=== PATIENT | male | born 2000 | race Two or more races ===

== ENCOUNTER 2021-03-14 16:33 | Emergency (ER) | payer OTHER, SELFPAY ==
[2021-03-14] MEDS ORDERED: HYDROmorphone 0.5 MG/0.5 ML Syringe ONE (16:40)
--- NOTE | 2021-03-14 16:55 | EDM.PDOC ---
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 He somehow got his L forearm into the area of where the tongs grab the pipe without resultant injury. Pt is now able to really give more information on why or how it happened. He does have severe pain. He has a bleeding open wound with no bone protruding dosal L mid forearm. 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 EMS has given a total of 4 mg morphine IV and zofran 4 mg IV GAS DISPENSER. He believes his last tetanus was about 3 to 4 yrs ago. This was called a trauma alert GAS DISPENSER based on mechanism of injury and reported open fracture/crush injury. He is not diabetic, no known health problems. Left Arm Pain Score (Numeric/FACES): 10 - Related Data Allergies Allergy/AdvReac Type Severity Reaction Status Date / Time No Known Allergies Allergy Verified 03/15/21 09:44 Home Meds: Home Meds Hydrocodone/Acetaminophen [Hydrocodone-Acetamin 5-325 mg] 1 - 2 each PO Q6H PRN #40 03/15/21 [Rx] Review of Systems - Review of Systems Review Of Systems: See Below Eyes: Reports: No Symptoms Mouth/Throat: Reports: No Symptoms Respiratory: Denies: Shortness of Breath Cardiovascular: Denies: Chest Pain GI/Abdominal: Denies: Abdominal Pain Musculoskeletal: Reports: Arm Pain Skin: Reports: Other (Skin lac mid forearm) Neurological: Reports: Numbness (L hand and fingers ), Tingling ED EXAM, GENERAL - Physical Exam Exam: See Below Exam Limited By: Other (pt had a lot of pain L forearm at time of initial exam) Ear Exam: Bilateral Ear: Auricle Normal Head: Atraumatic Neck: Supple Respiratory/Chest: No Respiratory Distress, Lungs Clear, Normal Breath Sounds. No: Rhonchi, Wheezing Cardiovascular: Regular Rate, Rhythm GI/Abdominal: Soft, Non-Tender Extremities: Other (moderate tenderness L mid forearm, mild swelling, mild deformity with small open laceration mid dorsal forearm, slight oozing of blood present. Elbow, distal wrist and hand nontender) Neurological: Other (pt is finding it hard to flex and extend fingers, he does have good sensation to touch all distal fingers and thumb of L hand) Course - Vital Signs Last Recorded V/S: Last Vital Signs Temp 98.5 F 03/14/21 17:50 Pulse 61 03/14/21 19:15 Resp 20 03/14/21 19:15 BP 142/89 H 03/14/21 19:15 Pulse Ox 98 03/14/21 19:15 - Orders/Labs/Meds Orders: Active Orders 24 hr Category Date Time Status DME for Discharge [COMM] Stat Oth 03/14/21 19:34 Ordered Labs: Laboratory Tests 03/14/21 03/14/21 Range/Units 17:45 18:05 SARS-CoV-2 RNA (RUPAL) Negative (NEGATIVE) MRSA (PCR) Negative Meds: Medications Discontinued Medications Generic Name Dose Route Start Last Admin Trade Name Freq PRN Reason Stop Dose Admin Diphtheria/Tetanus/Acell Pertussis 0.5 ml 03/14/21 17:22 03/14/21 17:32 Diphtheria,Pertussis(Acell),Tetanus Vaccine 0.5 Ml Syringe IM 03/14/21 17:23 0.5 ml .ONCE ONE Administration Hydromorphone HCl 0.5 mg 03/14/21 17:35 03/14/21 16:41 Hydromorphone 0.5 Mg/0.5 Ml Syringe IVPUSH 03/14/21 17:36 0.5 mg ONETIME ONE Administration Hydromorphone HCl 0.5 mg 03/14/21 18:02 03/14/21 18:10 Hydromorphone 0.5 Mg/0.5 Ml Syringe IVPUSH 03/14/21 18:03 0.5 mg ONETIME ONE Administration Hydromorphone HCl Confirm 03/14/21 16:40 Hydromorphone 0.5 Mg/0.5 Ml Syringe Administered 03/14/21 16:41 Dose 0.5 mg .ROUTE .STK-MED ONE Cefazolin Sodium/Dextrose 1 gm 50 mls @ 100 mls/hr 03/14/21 17:01 03/14/21 17:10 / Premix IV 03/14/21 17:30 100 mls/hr ONETIME ONE Administration Cefazolin Sodium/Dextrose 1 gm 50 mls @ 100 mls/hr 03/14/21 17:17 03/14/21 17:27 / Premix IV 03/14/21 17:46 100 mls/hr ONETIME ONE Administration - Re-Assessments/Exams Free Text/Narrative Re-Assessment/Exam: 03/14/21 17:34 X rays of forearm show transverse fx of L mid radius with mild volar angulation visible on lateral view. Have discussed with Dr Coyne who has reviewed Xrays, with the volar angulation of radius does not see how the open skin wound dorsal forearm could be from bone, especially with no fx of ulna. He will see patient at his office 8 AM tomorrow morning. Hope to do surgery tomorrow. Tetanus has been ordered. Have given 1 gram IV ancef, will give a 2nd gram IV. Much more comfortable now after 0.5 mg dilaudid after arrival. On recheck he still has good distal pulses and cap refill LUE. The numbness of his L hand that he had on arrival is gone. 03/14/21 19:11. At time of splinting pt doing much better for pain, however swelling of mid forearm has increased. As noted the numbness of his L distal forearm, wrist and hand is gone which he did have on arrival to ED. He is able o flex fingers, has pain L forearm with extension. Have further discussed with Dr Coyne the increased swelling but improve numbness and tingling. Have further emphasized with pt the need for compulsive elevation, ice packs this evening and continued elevation during he night to try prevent further swelling. Discharge instr. as documented. Departure - Departure Time of Disposition: 19:13 Disposition: Home, Self-Care 01 Condition: Fair Clinical Impression: Contusion of forearm, left Qualifiers: Encounter type: initial encounter Qualified Code(s): S50.12XA - Contusion of left forearm, initial encounter Fracture of forearm Qualifiers: Encounter type: initial encounter Fracture type: open Laterality: left - Discharge Information Instructions: Forearm Fracture With Rehab-SportsMed, Contusion, [id number] Referrals: PCP,None [Primary Care Provider] - Forms: ED Department Discharge Additional Instructions: Fiberglass splint. Wrist sling. Keep splint dry. Elevate forearm, hand, and wrist as much as possible. Ice packs every 1 hr for about 20 to 30 minutes this evening and than again tomorrow AM prior to Ortho appointment. Hydrocodone if needed for severe pain, take with food. Nothing to eat or drink after midnight. See Dr Coyne at his Orthopedic office 8 Am tomorrow morning. - My Orders Last 24 Hours: My Active Orders 03/14/21 19:34 DME for Discharge [COMM] Stat - Assessment/Plan Last 24 Hours: My Active Orders 03/14/21 19:34 DME for Discharge [COMM] Stat
[2021-03-14] MEDS ORDERED: ceFAZolin 1 GM in Premix Bag 1 BAG IV ONE ×2 (17:01→17:17)
[2021-03-14] MEDS ORDERED: Diphtheria,Pertussis(Acell),Tetanus Vaccine 0.5 ML Syringe IM ONE (17:22)
[2021-03-14] MEDS ORDERED: HYDROmorphone 0.5 MG/0.5 ML Syringe IVPUSH ONE ×2 (17:35→18:02)
--- NOTE | 2021-03-14 20:36 | CR ---
Left forearm: 2 views of the left forearm were obtained. Comparison: No prior study. Fracture is identified within the mid one third diaphysis of the radius. Slight apex anterior angulation is noted. Small chip fracture is noted off the cortex of the mid ulna. Diffuse soft tissue swelling is noted with soft tissue air. Impression: 1. Radial fracture as noted above. 2. Minimal chip fracture off the mid ulna. 3. Diffuse soft tissue injury. Diagnostic code #3
== END 2021-03-14 19:50 | disposition home or self-care (01) ==
LOC: JD.ED 16:33
DX: S52.322A Displaced transverse fracture of shaft of left radius, initial encounter for closed fracture (principal); S52.292A Other fracture of shaft of left ulna, initial encounter for closed fracture; Z20.822 Contact with and (suspected) exposure to COVID-19; Z23 Encounter for immunization; W23.0XXA Caught, crushed, jammed, or pinched between moving objects, initial encounter; Y99.0 Civilian activity done for income or pay
CPT/HCPCS: 29105; 73090; 87635; 87641; 90471; 90715; 96365; 96375; 96376; 99284; J0690; J1170; U0002

== ENCOUNTER → 2021-03-15 | Day surgery (SDC) | payer OTHER ==
[~2021-03-15] MED LIST: Acetaminophen/HYDROcodone 325-5 MG Tab PO PRN; Bupivacaine 0.25% 10 ML SDV ONE; Dexamethasone 4 MG/ML 5 ML MDV ONE; Glycopyrrolate 0.2 MG/ML SDV ONE; HYDROmorphone 0.5 MG/0.5 ML Syringe IVPUSH PRN; HYDROmorphone 0.5 MG/0.5 ML Syringe ONE; Ketamine 500 mg/10 ML MDV ONE; Ketorolac 30 MG/ML SDV ONE; Lactated Ringers 1,000 ML IV SCH; Lidocaine 1% 4 ML ONE; Lidocaine 1%/Sod Bicarbonate in NS 8.4% 1 ML Syringe IDERM PRN; Midazolam 1 MG/ML 2 ML SDV ONE; Ondansetron 4 MG/2 ML SDV IVPUSH PRN; Ondansetron 4 MG/2 ML SDV ONE; Propofol 200 MG/20 ML SDV ONE; Sodium Chloride 0.9% 10 ML Syringe FLUSH PRN; ceFAZolin 1 GM Vial ONE; fentaNYL 100 MCG/2 ML SDV IVPUSH PRN; fentaNYL 250 MCG/5 ML SDV ONE
--- NOTE | 2021-03-15 09:21 | PCM.PREANE ---
Preanesthetic Assessment - Procedure Proposed Procedure: ORIF of left radius with irrigation and debridement. - Anesthesia/Transfusion/Family Hx Anesthesia History: No Prior Anesthesia Family History of Anesthesia Reaction: No Transfusion History: No Prior Transfusion(s) Intubation History: Unknown - Review of Systems General: No Symptoms Pulmonary: No Symptoms (Last smoked marijuana 4 years ago/childhood asthma that has resolved.) Cardiovascular: No Symptoms Gastrointestinal: No Symptoms Neurological: No Symptoms, Headache, Seizure (last seizure 1.5-2 years ago.) Other: Reports: Easy Bruising, Anxiety - Physical Assessment NPO Status Date: 03/14/21 NPO Status Time: 22:00 Vital Signs: HR: 52 Sat: 100% Resp: 16 B/P: 145/89 Temp: 99.4 Height: 1.78 m Weight: 71 kg ASA Class: 1 Mental Status: Alert & Oriented x3 Airway Class: Mallampati = 2 Dentition: Reports: Normal Dentition, Caries Thyro-Mental Finger Breadths: 3 Mouth Opening Finger Breadths: 3 ROM/Head Extension: Full Lungs: Clear to Auscultation, Normal Respiratory Effort Cardiovascular: Regular Rate, Regular Rhythm, No Murmurs - Lab Values: All labs reviewed and noted and within acceptable ranges to proceed with scheduled procedure. - Allergies Allergies/Adverse Reactions: Allergies Allergy/AdvReac Type Severity Reaction Status Date / Time No Known Allergies Allergy Verified 03/14/21 17:15 - Anesthesia Plan Pre-Op Medication Ordered: None - Acknowledgements Anesthesia Type Planned: General Anesthesia Pt an Appropriate Candidate for the Planned Anesthesia: Yes Alternatives and Risks of Anesthesia Discussed w Pt/Guardian: Yes Pt/Guardian Understands and Agrees with Anesthesia Plan: Yes PreAnesthesia Questionnaire - HOME MEDS Home Medications: Home Meds . [No Known Home Meds] 03/14/21 [History] - CURRENT (IN HOUSE) MEDS Current Meds: Current Medications Lactated Ringer's (Ringers, Lactated) 1,000 mls @ 125 mls/hr IV ASDIRECTED VISH Lidocaine/Sodium Bicarbonate (Lidocaine 1%/Sod Bicarbonate In Ns 8.4% 1 Ml Syringe) 0.25 ml IDERM ONETIME PRN PRN Reason: Prior to IV Start Sodium Chloride (Sodium Chloride 0.9% 10 Ml Syringe) 10 ml FLUSH ASDIRECTED PRN PRN Reason: Keep Vein Open
[2021-03-15] MEDS: HYDROmorphone 0.5 MG/0.5 ML Syringe IVPUSH PRN ×2 (09:38→09:56)
--- NOTE | 2021-03-15 13:37 | PCM.POSTAN ---
POST ANESTHESIA ASSESSMENT - MENTAL STATUS Mental Status: Somnolent - VITAL SIGNS Vital Signs: Last Vital Signs Temp 99.3 F 03/15/21 08:57 Pulse 52 L 03/15/21 08:57 Resp 16 03/15/21 08:57 BP 145/85 H 03/15/21 08:57 Pulse Ox 100 03/15/21 08:57 1329 152/94 51 16 973.7 100% - RESPIRATORY Respiratory Status: Respiratory Rate WNL, Airway Patent, O2 Saturation Stable, Supplemental Oxygen - CARDIOVASCULAR CV Status: Pulse Rate WNL, Blood Pressure Stable - GASTROINTESTINAL GI Status: No Symptoms - PAIN Pain Score: 0 (sleepy) - POST OP HYDRATION Hydration Status: Adequate & Stable
--- NOTE | 2021-03-15 13:47 | CR ---
Left forearm: 8 fluoroscopic spot views were obtained of the left arm. Study was centered to the fracture within the radius. Study obtained utilizing C-arm device. Comparison: Prior left forearm study of 03/14/21. Plate and screws have been placed across previous radial fracture. Alignment is anatomic. Minimal defect is noted within the adjacent ulna. Fluoroscopy time given is 10.9 seconds. Impression: 1. Satisfactory procedural study as noted above. Diagnostic code #2
--- NOTE | 2021-03-15 14:50 | PCM48HPAN ---
Post Anesthesia Note - EVALUATION WITHIN 48HRS OF ANESTHETIC Vital Signs in Normal Range: Yes Patient Participated in Evaluation: Yes Respiratory Function Stable: Yes Airway Patent: Yes Cardiovascular Function Stable: Yes Hydration Status Stable: Yes Pain Control Satisfactory: Yes Nausea and Vomiting Control Satisfactory: Yes Mental Status Recovered: Yes (states he just woke up. Pain is good now,.) Vital Signs: Last Vital Signs Temp 98.2 F 03/15/21 14:30 Pulse 44 L 03/15/21 14:30 Resp 9 L 03/15/21 14:30 BP 141/85 H 03/15/21 14:30 Pulse Ox 96 03/15/21 14:30
--- NOTE | 2021-03-22 11:33 | PCM.OPNOTE ---
- General Post-Op/Procedure Note Date of Surgery/Procedure: 03/15/21 Operative Procedure(s): open reduction internal fixation left radial shaft fracture with irrigation and debridement of forearm Pre Op Diagnosis: left radial shaft fracture with crush injury and laceration Post-Op Diagnosis: Same Anesthesia Technique: General LMA, Local Primary Surgeon: Saw Coyne Anesthesia Provider: Shelly Mario Client Development Director: Neida Ribeiro EBL in mLs: 20 Complications: None Condition: Good
--- NOTE | 2021-03-23 12:21 | OR ---
DATE OF OPERATION: 03/15/2021 SURGEON: Saw Coyne MD OPERATION PERFORMED: Open reduction and internal fixation of left radial shaft fracture with irrigation and debridement of forearm. PREOPERATIVE DIAGNOSIS: Left radial shaft fracture with crush injury and laceration. POSTOPERATIVE DIAGNOSIS: Left radial shaft fracture with crush injury and laceration. ANESTHESIA: General LMA with local. ANESTHESIA PROVIDER: Shelly Mario CRNA JAVA PROJECT MANAGER: Neida Ribeiro PA-C ESTIMATED BLOOD LOSS: 20 mL. COMPLICATIONS: None. CONDITION: Stable. DESCRIPTION OF PROCEDURE: The patient was identified in the preoperative holding area where the proper site was marked and identified by the surgeon. The patient was then taken back to the operative theater where, after adequate anesthesia, the patient's left upper extremity was sterilely prepped and draped in the usual sterile fashion. OR time-out was performed. The patient received 2 g of IV Ancef. At this time, the patient had a laceration on the dorsum of his forearm from the crush injury. I did extend the incision. We did debride the skin edges less than 3 sq cm, and then we ran 3 L of normal saline with cysto tubing through it. I did not feel that it communicated with the fracture site when probing. At this time, after this was completed, a sterile drape was placed underneath. Gloves were changed, and new instruments were used. A standard volar incision was made centered over the FCR. This was taken down, and the flexor pollicis longus tendon was divided. The brachioradialis as well as the neurovascular structures were retracted radially. The fracture site was identified. It was curetted and rongeured of fracture hematoma, and irrigation was irrigated through the fracture site. At this time, [id number] reduction clamps and lobster claw clamps were used for reduction of the radial shaft fracture. A 6-hole 3.5 mm compression plate was then placed under direct C-arm fluoroscopy. One screw was placed proximal to the fracture and then another in compression technique was placed distally. I then placed 2 more 3.5 cortical screws both proximally and distally to the fracture site. It was found to have anatomic reduction on both AP and lateral views and under direct visualization. At this time, adequate saline was irrigated through the wound. 2-0 Vicryl was used subcutaneously, and Prineo was used for skin closure. We did place two 3-0 nylon sutures over the laceration on the dorsum of the forearm as well. Of note, the patient did have a large hematoma that was evacuated, and his forearm was compressible after the surgery was done. The patient did have difficulty with flexion and extension of his IP joint before surgery. CARROLL /[id number]
== END | disposition home or self-care (01) ==
LOC: JD.SDS 08:39
PROVIDERS: ATTEND Orthopaedic Surgery
DX: S52.302A Unspecified fracture of shaft of left radius, initial encounter for closed fracture (principal); W31.89XA Contact with other specified machinery, initial encounter
CPT/HCPCS: 25515; 76000; C1713; C1776; J0690; J1100; J1170; J1885; J2250; J2405; J2704; J3010; J3490; J7120; 01830

== ENCOUNTER 2021-03-16 16:33 | Emergency (ER) | payer OTHER ==
--- NOTE | 2021-03-16 17:21 | EDM.PDOC ---
ED HPI GENERAL MEDICAL PROBLEM - General Chief Complaint: Upper Extremity Injury/Pain Stated Complaint: POST SURGICAL ISSUES WITH LT ARM Time Seen by Provider: 03/16/21 16:39 Source of Information: Reports: Patient History Limitations: Reports: No Limitations - History of Present Illness INITIAL COMMENTS - FREE TEXT/NARRATIVE: 20 yo M with LUE pain s/p surgery yesterday. He was here a few days ago after a crush injury to the arm and has a midshaft radial fracture. Yesterday he underwent operative intervention to wash out and fix the injury. He has been taking 2 tab hydrocodone every 6 hours and feels pain is not controlled. He's had fairly severe/constant pain. Pain is located on the volar aspect of the forearm near the incision. He has not had fever. No numbness. Minimal hand swelling. He is elevating and icing the arm when possible. No additional complaint. Right Arm Pain Score (Numeric/FACES): 10 - Related Data Allergies Allergy/AdvReac Type Severity Reaction Status Date / Time No Known Allergies Allergy Verified 03/16/21 16:42 Home Meds: Home Meds Hydrocodone/Acetaminophen [Hydrocodone-Acetamin 5-325 mg] 1 - 2 each PO Q6H PRN #40 03/15/21 [Rx] oxyCODONE 10 mg PO Q4HR PRN #24 tab 03/16/21 [Rx] Past Medical History Musculoskeletal History: Reports: Fracture - Past Surgical History Musculoskeletal Surgical History: Reports: Other (See Below) Other Musculoskeletal Surgeries/Procedures:: L Arm Surgery Social & Family History - Tobacco Use Tobacco Use Status *Q: Never Tobacco User - Caffeine Use Caffeine Use: Reports: Soda - Recreational Drug Use Recreational Drug Use: No Review of Systems - Review of Systems Review Of Systems: See Below Constitutional: Denies: Fever Respiratory: Reports: No Symptoms Cardiovascular: Reports: No Symptoms Musculoskeletal: Reports: Arm Pain Skin: Reports: No Symptoms Neurological: Denies: Numbness Psychiatric: Reports: No Symptoms ED EXAM, GENERAL - Physical Exam Exam: See Below Exam Limited By: No Limitations General Appearance: Alert, WD/WN, No Apparent Distress Eye Exam: Bilateral Eye: PERRL Ears: Normal External Exam Nose: Normal Inspection Throat/Mouth: Normal Inspection Head: Atraumatic Neck: Normal Inspection Respiratory/Chest: No Respiratory Distress GI/Abdominal: No Distention Extremities: Other (LUE: splint is intact, fingers are warm and well perfused, good cap refill, he does have pain with extension of fingers on the volar aspect of the arm, no numbness) Course - Vital Signs Last Recorded V/S: Last Vital Signs Temp 36.8 C 03/16/21 16:39 Pulse 85 03/16/21 16:39 Resp 16 03/16/21 16:39 BP 128/83 03/16/21 16:39 Pulse Ox 97 03/16/21 16:39 - Orders/Labs/Meds Meds: Medications Discontinued Medications Generic Name Dose Route Start Last Admin Trade Name Freq PRN Reason Stop Dose Admin Hydromorphone HCl 1 mg 03/16/21 17:49 03/16/21 17:53 Hydromorphone 1 Mg/Ml Syringe IM 03/16/21 17:50 1 mg ONETIME STA Administration - Re-Assessments/Exams Free Text/Narrative Re-Assessment/Exam: 03/16/21 17:[address] Coyne. He opened the fascia and left it open on the volar aspect of the arm where the patient has pain, which lowers concern for compartment syndrome. Patient's pain control has been poor with hydrocodone q6 hrs, we will switch to oxycodone, advised patient he may dose every 4 hours if needed for the next day or two. He will keep his scheduled follow-up with Dr. Coyne, discussed ED return precautions. He is taking his antibiotic as prescribed. 03/16/21 17:57 Will give a dose of IM dilaudid prior to DC if patient can arrange for a city bus driver, it has been nearly 6 hrs since last dose of hydrocodone. Departure - Departure Time of Disposition: 17:15 Disposition: Home, Self-Care 01 Clinical Impression: Post-operative pain - Discharge Information Prescriptions: oxyCODONE 10 mg PO Q4HR PRN #24 tab PRN Reason: Pain Instructions: Pain Relief Before and After Surgery, Acute Pain, Adult Referrals: Saw Coyne MD [Primary Care Provider] - Forms: ED Department Discharge Additional Instructions: 1. Continue to elevate and ice arm as much as possible to reduce swelling 2. You may take oxycodone instead of hydrocodone, and ok to dose every 4 hours if needed for next couple of days. After that, try to space out doses to every 6 hours if possible. 3. Return to the ED for a recheck if you get a fever, worsening pain, numbness in your fingers, or other concerning symptoms. Sepsis Event Note (ED) - Evaluation Sepsis Screening Result: No Definite Risk - Focused Exam Vital Signs: Vital Signs Temp Pulse Resp BP Pulse Ox 03/16/21 16:39 36.8 C 85 16 128/83 97
[2021-03-16] MEDS ORDERED: HYDROmorphone 1 MG/ML Syringe IM STA (17:49)
== END 2021-03-16 18:00 | disposition home or self-care (01) ==
LOC: JD.ED 16:33
DX: G89.18 Other acute postprocedural pain (principal); M79.602 Pain in left arm
CPT/HCPCS: 96372; 99283; J1170

== ENCOUNTER 2021-03-17 17:49 | Emergency (ER) | payer OTHER ==
--- NOTE | 2021-03-17 19:30 | EDM.PDOC ---
ED HPI GENERAL MEDICAL PROBLEM - General Chief Complaint: Upper Extremity Injury/Pain Stated Complaint: LT ARM PAIN/POST ORTHO SURGERY Time Seen by Provider: 03/17/21 18:06 Source of Information: Reports: Patient, Family, RN Notes Reviewed History Limitations: Reports: No Limitations - History of Present Illness INITIAL COMMENTS - FREE TEXT/NARRATIVE: patient is a 20 year old male presenting to ER with c/o numbness in the fingers of his left hand and worsening pain in his left arm. He had surgery for fracture of his left radius on March 15. He was seen in this ER yesterday for worsening of pain. Prescribed oxycodone. States he has been using this but does still have pain. His last dose of [place] was about 4 hours ago. He is also concerned with swelling above his dressing. He denies any fever or chills. He has had no nausea or vomiting. Left Arm Pain Score (Numeric/FACES): 10 - Related Data Allergies Allergy/AdvReac Type Severity Reaction Status Date / Time No Known Allergies Allergy Verified 03/17/21 18:08 Home Meds: Home Meds oxyCODONE 10 mg PO Q4HR PRN #24 tab 03/16/21 [Rx] Past Medical History Musculoskeletal History: Reports: Fracture - Past Surgical History Musculoskeletal Surgical History: Reports: Other (See Below) Other Musculoskeletal Surgeries/Procedures:: L Arm Surgery Social & Family History - Tobacco Use Tobacco Use Status *Q: Never Tobacco User - Caffeine Use Caffeine Use: Reports: Soda - Recreational Drug Use Recreational Drug Use: Yes Drug Use in Last 12 Months: No Recreational Drug Type: Reports: Marijuana/Hashish Review of Systems - Review of Systems Review Of Systems: Comprehensive ROS is negative, except as noted in HPI. ED EXAM, GENERAL - Physical Exam Exam: See Below Exam Limited By: No Limitations General Appearance: Alert, WD/WN, No Apparent Distress Extremities: Other (Antoine wrap splint extending from left hand to just below the elbow. Swelling, redness, and warmth proximal to the splint. Pain when fingers are palpated. Complains of numbness of the fingers, worse in the thumb and index finger. Capillary refill greater than 2 seconds in the first and second finge) Course - Vital Signs Last Recorded V/S: Last Vital Signs Temp 98.4 F 03/17/21 18:08 Pulse 88 03/17/21 18:08 Resp 14 03/17/21 18:08 BP 157/84 H 03/17/21 18:08 Pulse Ox 96 03/17/21 18:08 - Re-Assessments/Exams Free Text/Narrative Re-Assessment/Exam: A 20-year-old male presenting to the emergency department with complaints of worsening pain to his left arm as well as onset of numbness to the fingers of his left hand. He is 2 days postop ORIF of the left radius. On exam, patient does have redness, warmth, and swelling proximal to the splint as well as decreased capillary refill to the first and second fingers on left hand. Reports numbness in the fingers with the first and second fingers being worse. Case was discussed with orthopedist, Dr. Coyne. He states that his concern would be for compartment syndrome more so than infection. Dr. Barillas also assessed the patient. Dressing was removed using sterile technique. After the dressing was removed patient had immediate improvement of his pain as well as of the numbness of his first and second fingers. Wound to the dorsal aspect of the forearm is well approximated. There is no redness, warmth, or drainage to this area. Surgical incision is also well approximated with no signs of infection. Dressing was left open for about [address] Coyne. He recommend reapplying a very loose dressing. States no Ortho-Glass is needed as the bone is stable after plating. Vaseline gauze was applied over laceration to the dorsal aspect of the arm. Nonstick Telfa covering the surgical incision. Was covered loosely with Kerlix and covered with Antoine wrap. Patient was placed back in the sling. He states his pain is much better. He does still have oxycodone hydrocodone at home for pain. Discussed return precautions. Discharge instructions as documented Departure - Departure Time of Disposition: 19:30 Disposition: Home, Self-Care 01 Condition: Good Clinical Impression: Post-operative pain - Discharge Information *PRESCRIPTION DRUG MONITORING PROGRAM REVIEWED*: No *COPY OF PRESCRIPTION DRUG MONITORING REPORT IN PATIENT MICHELINE: No Referrals: PCP,None [Primary Care Provider] - Additional Instructions: You were seen in the emergency this evening for reevaluation of your fractured arm due to worsening pain and numbness in your hand. Your pain and numbness was likely due to your dressing being too tight. New dressing was applied. This should be kept on at all times. Continue to use the sling and ice and elevate the extremity. Continue your hydrocodone and oxycodone as prescribed. If you should experience any new or worsening symptoms, please do not hesitate to return to the ER for reevaluation. Sepsis Event Note (ED) - Evaluation Sepsis Screening Result: No Definite Risk - Focused Exam Vital Signs: Vital Signs Temp Pulse Resp BP Pulse Ox 03/17/21 18:08 98.4 F 88 14 157/84 H 96
== END 2021-03-17 19:42 | disposition home or self-care (01) ==
LOC: SUPCPDRO 17:49 → JD.ED 17:49
DX: G89.18 Other acute postprocedural pain (principal); M79.602 Pain in left arm; Z98.890 Other specified postprocedural states
CPT/HCPCS: 99283

== ENCOUNTER 2021-03-18 16:38 | Emergency (ER) | payer OTHER ==
--- NOTE | 2021-03-18 17:50 | EDM.PDOC ---
ED HPI GENERAL MEDICAL PROBLEM - General Chief Complaint: Medication Administration Stated Complaint: PAIN MEDS REFILL Time Seen by Provider: 03/18/21 17:13 Source of Information: Reports: Patient History Limitations: Reports: No Limitations - History of Present Illness INITIAL COMMENTS - FREE TEXT/NARRATIVE: 20-year-old male presents the emergency department today with requests to have his pain medication refilled. Patient does not appear to be in any discomfort at this time. Patient's eyelids are droopy and he is slightly slow to respond and is slurring his words from time to time. It is apparent he has been taking a fair amount of pain medication. Patient had surgery on 03/15/2021 for crush injury to his left upper forearm. Patient then represented to the emergency department on 03/16/2021 as he states his pain was not controlled. He was given a prescription for oxycodone as he had been given hydrocodone's and he states this was not controlling his pain. He then presented yesterday in the emergency department with pain and numbness. At that time his arm was resplinted and this caused significant decrease in pain and numbness and his pain was well under control. He presents today as he states that he only has 2 oxycodones left and would like a refill of his pain medication today. He is not having any pain or discomfort at this time. CMS is intact. He does have a slight bit of swelling noted to his fingers and he states he has some bruising noted to the upper portion of his forearm however this is to be expected. Left Arm Pain Score (Numeric/FACES): 8 - Related Data Allergies Allergy/AdvReac Type Severity Reaction Status Date / Time No Known Allergies Allergy Verified 03/18/21 17:16 Home Meds: Home Meds oxyCODONE 10 mg PO Q4HR PRN #24 tab 03/16/21 [Rx] Past Medical History Musculoskeletal History: Reports: Fracture - Past Surgical History Musculoskeletal Surgical History: Reports: Other (See Below) Other Musculoskeletal Surgeries/Procedures:: L Arm Surgery Social & Family History - Tobacco Use Tobacco Use Status *Q: Never Tobacco User - Caffeine Use Caffeine Use: Reports: Soda - Recreational Drug Use Recreational Drug Use: No ED ROS GENERAL - Review of Systems Review Of Systems: Comprehensive ROS is negative, except as noted in HPI. ED EXAM, GENERAL - Physical Exam Exam: See Below Exam Limited By: No Limitations General Appearance: Alert, WD/WN, No Apparent Distress Ears: Normal External Exam, Hearing Grossly Normal Nose: Normal Inspection Throat/Mouth: Normal Inspection, Normal Lips, Normal Voice, No Airway Compromise Head: Atraumatic Neck: Normal Inspection, Supple Respiratory/Chest: No Respiratory Distress, No Accessory Muscle Use Cardiovascular: Normal Peripheral Pulses, Regular Rate, Rhythm. No: No Edema (Edema noted to the fingers on left hand) GI/Abdominal: No Distention (Male) Exam: Deferred Rectal (Males) Exam: Deferred Back Exam: Normal Inspection Extremities: No: Normal Inspection (Left arm is wrapped and splinted. Patient's arm is in a sling. CMS is positive to left upper extremity.) Neurological: Alert, Oriented, Normal Cognition Psychiatric: Normal Affect, Normal Mood Skin Exam: Warm, Dry, Intact, Normal Color, No Rash Lymphatic: No Adenopathy Course - Vital Signs Text/Narrative:: Discussed with the patient the fact that I would not refill his oxycodone's and he should begin to have some pain relief as he is a couple days out from having surgery. He has used a significant amount of pain medication already. Recommend that he only take 1 tab of oxycodone at a time and then decrease down to 1 tab of hydrocodone every 6 hours while awake. He can also begin taking ibuprofen 600 mg every 6 hours and this will help with the swelling and pain as well. States he has a follow-up appointment scheduled with Dr. Doretha Giron's PA. I also discussed that he needs to continue taking his antibiotics until they are gone. Patient does verbalize understanding of this. Last Recorded V/S: Last Vital Signs Temp 98.0 F 03/18/21 17:13 Pulse 87 03/18/21 17:13 Resp 14 03/18/21 17:13 BP 151/88 H 03/18/21 17:13 Pulse Ox 97 03/18/21 17:13 Departure - Departure Time of Disposition: 17:57 Disposition: Home, Self-Care 01 Condition: Good Clinical Impression: Encounter for medication refill, Post-operative pain - Discharge Information Referrals: Saw Coyne MD [Primary Care Provider] - Forms: ED Department Discharge Additional Instructions: You were seen in the emergency department today with request of having your oxycodone refilled. I will not refill this medication as you have taken a significant amount already. At this point in time you are 3 days postop and your pain should start to get better by the day. Recommend that you take only 1 oxycodone every 6 hours while awake. You still have hydrocodone at home and after the oxycodone is gone you may take 1 hydrocodone every 6 hours while awake. You may also try to take ibuprofen 600 mg every 6 hours while awake. This will likely decrease inflammation and pain in addition to the oxycodone. As discussed, the amount of narcotics that you have been taking are likely to cause you to become constipated. It is recommended that you increase your fluid intake and start taking a stool softener such as Dulcolax. Continue taking your antibiotic as prescribed until it is gone. Follow-up as previously scheduled with J CARLOS Mon. Should your condition worsen or change, do not hesitate returning to the emergency department. Sepsis Event Note (ED) - Evaluation Sepsis Screening Result: No Definite Risk - Focused Exam Vital Signs: Vital Signs Temp Pulse Resp BP Pulse Ox 03/18/21 17:13 98.0 F 87 14 151/88 H 97
== END 2021-03-18 18:20 | disposition home or self-care (01) ==
LOC: JD.ED 16:38 → SUPCPDRO 16:38 → JD.ED 18:20
DX: G89.18 Other acute postprocedural pain (principal); M79.632 Pain in left forearm; R60.0 Localized edema; Z76.0 Encounter for issue of repeat prescription
CPT/HCPCS: 99281; 99282

== ENCOUNTER 2021-03-21 10:51 | Emergency (ER) | payer OTHER ==
--- NOTE | 2021-03-21 13:02 | EDM.PDOC ---
ED HPI GENERAL MEDICAL PROBLEM - General Chief Complaint: Upper Extremity Injury/Pain Stated Complaint: L ARM PAIN Time Seen by Provider: 03/21/21 11:27 Source of Information: Reports: Patient, RN Notes Reviewed - History of Present Illness INITIAL COMMENTS - FREE TEXT/NARRATIVE: Pt presents with L forearm pain, continued numbness of L hand, wondering if he can return to work after getting his L forearm in the tongs at work 1 week ago. He had surgery for mid radius fx 6 days ago. Pt has about run out of his pain meds, is out of the oxycodone prescribed about 4 to 5 days ago, has a couple of hydrocodone left but states "they don't work". Left Arm Pain Score (Numeric/FACES): 10 - Related Data Allergies Allergy/AdvReac Type Severity Reaction Status Date / Time gluten AdvReac Severe Stomach Verified 03/21/21 11:10 Ache Home Meds: Home Meds Hydrocodone/Acetaminophen [Hydrocodone-Acetamin 5-325 mg] 1 each PO Q4HR PRN #20 tablet 03/21/21 [Rx] Hydrocodone/Acetaminophen [Hydrocodone-Acetamin 5-325 mg] 1 tab PO Q4H PRN 03/21/21 [History] Past Medical History Musculoskeletal History: Reports: Fracture - Past Surgical History Musculoskeletal Surgical History: Reports: Other (See Below) Other Musculoskeletal Surgeries/Procedures:: L Arm Surgery Social & Family History - Tobacco Use Tobacco Use Status *Q: Never Tobacco User - Caffeine Use Caffeine Use: Reports: Tea - Recreational Drug Use Recreational Drug Use: No Review of Systems - Review of Systems Review Of Systems: See Below Constitutional: Denies: Chills, Fever Cardiovascular: Reports: No Symptoms GI/Abdominal: Reports: No Symptoms Musculoskeletal: Reports: Arm Pain Neurological: Reports: Numbness (L hand since the injury 1 week ago) ED EXAM, GENERAL - Physical Exam Exam: See Below General Appearance: Alert, No Apparent Distress Head: Atraumatic Respiratory/Chest: No Respiratory Distress Extremities: Limited Range of Motion (he can move fingers but states that is painful for him L forearm), Other (incissions of L forearm post surgical are healing well, no unusual warmth, swelling or drainage. there is mild diffuse swelling L forearm but no severe, much less than present at time of initial injury, mild bruising present L distar arm,L proximal to mid forearm,mild swelling hand, gd cap refill) Neurological: Alert, Oriented, Other (Pt does have intact sensation to touch all fingers and thumb of L hand although index and middle finger sensation decreased compared to R hand) Course - Vital Signs Last Recorded V/S: Last Vital Signs Temp 96.5 F L 03/21/21 11:07 Pulse 72 03/21/21 11:07 Resp 16 03/21/21 11:07 BP 129/92 H 03/21/21 11:07 Pulse Ox 100 03/21/21 11:07 - Re-Assessments/Exams Free Text/Narrative Re-Assessment/Exam: 03/21/21 18:14 prior forearm dressing removed, after exam similar protective dressing reapplied. His follow up appt was next Saturday 6 days from now, have arranged for follow up appt 3 :15 tomorrow afternoon. Discharge instr. as documented. Departure - Departure Time of Disposition: 12:59 Disposition: Home, Self-Care 01 Condition: Fair Clinical Impression: Left forearm pain - Discharge Information Prescriptions: Hydrocodone/Acetaminophen [Hydrocodone-Acetamin 5-325 mg] 1 each PO Q4HR PRN #20 tablet PRN Reason: Pain Referrals: Saw Coyne MD [Primary Care Provider] - Forms: ED Department Discharge Additional Instructions: Continue to elevate your hand and forearm as much as possible. Continue with ice packs every 2 to 3 hrs when awake. Ibuprofen 600 mg 3 times daily with food. You may take tylenol in between doses for extra pain relief or hydrocodone if needed for severe pain. Prescription has been sent to [facility] on [address]. Do not take tylenol and hydrocodone at the same time. See Wm Feliz at Dr Coyne's Office tomorrow afternoon at 3:15 PM. Sepsis Event Note (ED) - Evaluation Sepsis Screening Result: No Definite Risk - Focused Exam Vital Signs: Vital Signs Temp Pulse Resp BP Pulse Ox 03/21/21 11:07 96.5 F L 72 16 129/92 H 100
== END 2021-03-21 13:08 | disposition home or self-care (01) ==
LOC: JD.ED 10:51
DX: M79.632 Pain in left forearm (principal); Z91.018 Allergy to other foods
CPT/HCPCS: 99283

== ENCOUNTER 2024-07-03 12:17 | Emergency (ER) | payer SELFPAY ==
[2024-07-03] MEDS: Lidocaine 1% 10 ML MDV INJECT ONE (13:32)
== END 2024-07-03 14:07 | disposition home or self-care (01) ==
LOC: JD.ED 12:17
DX: S61.412A Laceration without foreign body of left hand, initial encounter (principal); Z91.048 Other nonmedicinal substance allergy status; Z79.899 Other long term (current) drug therapy; W20.8XXA Other cause of strike by thrown, projected or falling object, initial encounter
CPT/HCPCS: 12001; 73130-26-LT; 73130-LT; 99283; J3490

== ENCOUNTER 2024-09-09 09:46 | Emergency (ER) | payer BC ==
[2024-09-09] MEDS: Ondansetron 4 MG Tab.DIS PO ONE (11:12)
== END 2024-09-09 11:43 | disposition home or self-care (01) ==
LOC: JD.ED 09:46
DX: A08.4 Viral intestinal infection, unspecified (principal); Z91.048 Other nonmedicinal substance allergy status
CPT/HCPCS: 99283; A9270